=== PATIENT | female | born 1970 | race Caucasian/White ===

== ENCOUNTER 2017-01-20 12:08 | Emergency (ER) | payer OTHER ==
[~2017-01-20] VITALS: Ht 154.9 cm; Wt 44.9 kg
--- NOTE | ~2017-01-20 | CR142 ---
[facility] A Service of [facility] & [facility] RADIOLOGY TEXT RESULTS PATIENT: YOVANA JC LOCATION: SED : 74 UNIT #: [id number] AGE: [address]: THOMAS FELIX SEX: F ORDER DR: [id number] [address] [address] [id number] E MR#: [id number] Acc #: [id number] NAME: YOVANA JC : 1970 SEX: F STUDY DATE/TIME: 01/20/2017 12:47 UNIT: SED ROOM: STUDY DESCRIPTION: CR Hand Min 3 Views Rt Attending Physician: Thomas Felix. P.A. Ordering Physician: Dudley Barker Primary Care Physician: Lakeshia Garcia M.D. MEDICAL IMAGING REPORT This report is preliminary unless electronic signature is present. EXAM Right hand, 01/20/2017. HISTORY Right hand pain after falling down stairs 2 days ago. FINDINGS AP, lateral, and oblique projections of the hand show good mineralization with normal carpal, metacarpal, and phalangeal anatomy without indication of fracture, dislocation, or soft tissue radiopaque foreign body. IMPRESSION Normal hand. Dictated by... Christian Ross M.D. THIS IS AN ELECTRONICALLY VERIFIED REPORT Christian Ross M.D. at 01/22/2017 6:16 AM TAISHA/jayla TD: 01/21/2017 15:35 JOB #: [id number] MEDICAL IMAGING REPORT Page 1 of 1
--- NOTE | ~2017-01-20 | CR181 ---
[facility] A Service of [facility] & [facility] RADIOLOGY TEXT RESULTS PATIENT: YOVANA JC LOCATION: SED : 74 UNIT #: [id number] AGE: [address]: THOMAS FELIX SEX: F ORDER DR: [id number] [address] [address] [id number] E MR#: [id number] Acc #: [id number] NAME: YOVANA JC : 1970 SEX: F STUDY DATE/TIME: 01/20/2017 12:47 UNIT: SED ROOM: STUDY DESCRIPTION: CR Lumbar Spine 2 or 3 Views Attending Physician: Dudley Barker Ordering Physician: Dudley Barker Primary Care Physician: Lakeshia Garcia M.D. MEDICAL IMAGING REPORT This report is preliminary unless electronic signature is present. EXAM Lumbar spine, 3-view series, 01/20/2017. HISTORY Low back pain after falling down stairs 2 days ago. FINDINGS AP and lateral views of the lumbar spine were obtained. The vertebral bodies appear normal. There is no disc space narrowing or fracture. IMPRESSION Normal 3-view lumbar spine series. Dictated by... Christian Ross M.D. THIS IS AN ELECTRONICALLY VERIFIED REPORT Christian Ross M.D. at 01/22/2017 6:16 AM TAISHA/jayla TD: 01/21/2017 15:42 JOB #: [id number] MEDICAL IMAGING REPORT Page 1 of 1
--- NOTE | ~2017-01-20 | CR210 ---
[facility] A Service of [facility] & [facility] RADIOLOGY TEXT RESULTS PATIENT: YOVANA JC LOCATION: SED : 74 UNIT #: [id number] AGE: [address]: THOMAS FELIX SEX: F ORDER DR: [id number] [address] [address] [id number] E MR#: [id number] Acc #: [id number] NAME: OYVANA JC : 1970 SEX: F STUDY DATE/TIME: 01/20/2017 12:47 UNIT: SED ROOM: STUDY DESCRIPTION: CR Ribs Uni 2 View W PA Ch Lt Attending Physician: Dudley Barker Ordering Physician: Dudley Barker Primary Care Physician: Lakeshia Garcia M.D. MEDICAL IMAGING REPORT This report is preliminary unless electronic signature is present. EXAM Left rib series and PA chest, 01/20/2017. INDICATIONS Fell down stairs 2 days ago with left rib pain. FINDINGS A PA view of the chest and 2 oblique views of the left ribs were obtained. There appear to be healed rib fractures of the left 7th and perhaps 8th ribs. No acute fracture identified. Heart size and vascularity are normal. Lungs are clear. IMPRESSION No evidence of acute left-sided rib injury. No active disease. Dictated by... Christian Ross M.D. THIS IS AN ELECTRONICALLY VERIFIED REPORT Christian Ross M.D. at 01/22/2017 6:16 AM Mickey TD: 01/21/2017 15:39 JOB #: [id number] MEDICAL IMAGING REPORT Page 1 of 1
[~2017-01-20 12:08] MED LIST: ALBUTEROL17 G1 IH; ALBUTEROL17 GM INH; ALL DAY ALLERGY10 M2 PO; ALLERGY10 M2 PO; AMITRIPTYLINE H50 MG PO; B6100 MG PO; BACTRIM DS TABL1 TAB PO; CELEBREX; CELEBREX PO; CELEXA20 MG PO; CIPRODEX OTIC7.5 ML OT; CITRACAL200 MG PO; CLEOCIN HCL300 M1 PO; DETROL LA2 MG PO; DETROL2 M1; DIAZEPAM PO; FLEXERIL PO; FLUOXETINE HCL20 M1 PO; FOLIC ACID PO; FOLIC ACID1 MG PO; GABAPENTIN800 MG PO; HYDROCODONE-APA1 T41; IBUPROFEN PO; KEFLEX PO; LASIX20 MG PO; MEDROL DOSEPAK4 MG PO; METHADONE HCL10 MG PO; METHADOSE10 MG PO; MOBIC PO; NEURONTIN PO; NEURONTIN100 MG PO; NEURONTIN600 MG PO; NEURONTIN800 MG PO; OCUFLOX10 ML OU; ONE DAILY WOME0.4 MG PO; PEPCID AC20 M2 PO; PHENERGAN PO; PHENERGAN25 M1 PO; POTASSIUM GLUCO99 M1 PO; POTASSIUM99 M2 PO; PREDNISONE PO; PRILOSEC20 M1 PO; PRILOSEC20 MG PO; SARAFEM20 MG; TYLOX1 CAP 5/50 PO; VENTOLIN5 MG/ML IH; ZITHROMAX1 G/PKT PO; [UNRECOGNIZED DRUG - REMARK]
[2017-01-20] MEDS ORDERED: NEURONTIN PO (12:21)
== END 2017-01-20 13:35 | disposition home or self-care (01) ==
LOC: SED 12:08
DX: S20.212A Contusion of left front wall of thorax, initial encounter (principal); S30.0XXA Contusion of lower back and pelvis, initial encounter; S60.222A Contusion of left hand, initial encounter; F17.210 Nicotine dependence, cigarettes, uncomplicated; G62.9 Polyneuropathy, unspecified; Z79.899 Other long term (current) drug therapy; W10.9XXA Fall (on) (from) unspecified stairs and steps, initial encounter; Y92.009 Unspecified place in unspecified non-institutional (private) residence as the place of occurrence of the external cause
CPT/HCPCS: 29280; 71100; 72100; 73130; 99283